=== PATIENT | male | born 1945 | race Caucasian/White ===

== ENCOUNTER 2024-03-20 11:45 | Emergency (ER) | payer MEDICARE, OTHER, SELFPAY ==
[2024-03-20] VITALS (7 sets, daily range): BP systolic 135–153; BP diastolic 59–67; PULSE 69–88; RESP 16–17; TEMP 36–36.6; O2SAT 98–99; BMI 23.1
--- NOTE | 2024-03-20 12:29 | RAD_ITS ---
STUDY: X-RAY CHEST REASON FOR EXAM: Male, 78 years old. One month history of shortness of breath. TECHNIQUE: PA and lateral views of the chest. COMPARISON: None. FINDINGS: There is hyperinflation of the lungs consistent with chronic obstructive lung disease (COPD). There is no demonstrated pleural abnormality. Normal size heart. Normal mediastinum and marjorie. Normal visualized pulmonary arteries. There is atherosclerotic calcification of the aortic arch with tortuosity. There are diffuse degenerative changes of the visualized thoracic spine. Normal visualized ribs, clavicles, and shoulders. There is no demonstrated abnormality of the visualized soft tissue structures of the upper abdomen. RAD/Chest PA and Lateral IMPRESSION: Hyperinflation. The lungs are clear. Electronically Signed: Elijah Wheeler MD at 13:09 EDT ,
--- NOTE | 2024-03-20 12:30 | ED.VIS.DYS ---
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 The dyspnea all started way before the vacation. He denies any asymmetry with regards to the swelling, which he reports is admittedly mild. He has had the dyspnea when he walks upstairs, it is better when he rests. He denies any exertional angina/chest discomfort. No history of DVT or PE or lung or heart problems although he has had pneumonia in the past. He denies any acute cough or fevers now. He denies any exertional syncope or near syncope. He does not have a PCP. This is the first time he is been evaluated for all this. [facility] Medical History Appendicitis PNA (pneumonia) Home Medications ?Medication ?Instructions ?Recorded ?Last Taken ?Type furosemide 20 mg tablet 20 mg PO DAILY #10 tabs 03/20/24 Unknown Rx Allergy/AdvReac Type Severity Reaction Status Date / Time No Known Allergies Allergy Verified 03/20/24 11:52 Family History no significant family his Social History Smoking Status: Never smoker ROS ROS ED Constitutional Constitutional ED: Denies chills or fever(s) Eyes Eyes: Denies change in vision or diplopia ENT ENT ED: Denies rhinorrhea or sore throat Cardiovascular Cardiovascular: Reports pedal edema; Denies chest pain, orthopnea, palpitations or paroxysmal nocturnal dyspnea Respiratory/Chest Respiratory/Chest: Reports dyspnea on exertion; Denies cough, orthopnea or paroxysmal nocturnal dyspnea Gastrointestinal Gastrointestinal: Denies abdominal pain, diarrhea, nausea or vomiting Genitourinary Genitourinary ED: Denies dysuria or hematuria Musculoskeletal Musculoskeletal: Denies back pain or neck pain Integumentary Denies abscess or rash Neurologic Neurologic: Denies headache(s), paresthesias or weakness Psychiatric Psychiatric: Denies suicidal thoughts EXAM Physical Exam Const Vital Signs: 03/20/24 11:47 03/20/24 12:27 09/16/24 12:32 Temperature 96.8 F L Temperature Source Temporal Pulse Rate 88 Respiratory Rate 16 Respiratory Effort Normal Non-Labored Respiratory Depth Normal Respiratory Pattern Normal Blood Pressure 153/64 H Blood Pressure Mean 93 Pulse Ox 99 99 Oxygen Delivery Method Room Air Room Air 03/20/24 12:46 03/20/24 13:08 03/20/24 14:00 Temperature 98 F Temperature Source Temporal Pulse Rate 69 79 69 Respiratory Rate 16 16 Respiratory Effort Respiratory Depth Respiratory Pattern Blood Pressure 135/59 H 137/64 H 141/67 H Blood Pressure Mean 84 88 91 Pulse Ox 98 98 99 Oxygen Delivery Method Room Air Room Air Room Air Positive well nourished and well developed General Appearance ED: well developed and NAD HEENT Reports moist mucous membranes normocephalic and atraumatic Eyes PERRL and EOMs intact bilaterally Neck full ROM, supple and no JVD Resp normal respiratory effort and clear to auscultation bilaterally Cardio regular rate, regular rhythm and no murmurs Rate: Negative for tachycardic GI non-tender and non-distended Auscultation: normoactive bowel sounds Palpation: soft Back/Spine no CVA tenderness General Back: other FROM Extremity normal to inspection General Extremety ED: Yes edema; Negative for pulses abnormal or tenderness General Extremity: edema bilateral lower extremity Details: trace; Negative for pulses abnormal Neuro oriented x3, CN's II-XII intact bilaterally and no sensory deficits noted Sensorium / Orientation: awake and alert Motor Exam: strength 5/5 throughout Skin no rashes or lesions noted and no wounds MDM MDM MDM Narrative Medical decision making narrative: Worked patient up for acute coronary syndrome, congestive heart failure, pleural effusions, hypoproteinemia/hypoalbuminemia, renal failure. Patient has not of that. He has a mild leukocytosis, he is not anemic, his albumin levels are little low but not enough to cause third spacing and he does not appear to have third spacing clinically in his lungs. Two-view chest x-ray my interpretation negative pulmonary edema, radiology in agreement it is also unremarkable. His EKG is normal, his troponin and BNP are both negative ruling out acute GI stated congestive heart failure. He has no tachycardia and a normal rhythm, and pulse ox 99% on room air so I do not think this is a pulmonary embolus nor does have any risk for that. When asked about his salt intake he states has been eating a lot of ponce. Certainly that could explain the bilateral lower extremity edema, but not necessarily dyspnea with exertion. Given that I would recommend following up with pulmonary, he may need pulmonary function tests, but I do not think he needs any emergent admission or other workup here. His vitals are stable blood pressure 153/64, on recheck 141/67, he is comfortable with the overall plan of prescribing him a couple days of Lasix and following. Lab Data Attestation: I reviewed the patient's lab results. Labs: Laboratory Results - last 24 hr 03/20/24 12:25 WBC 12.6 H RBC 4.05 L Hgb 12.3 L Hct 37.9 L MCV 93.6 MCH 30.4 MCHC 32.5 RDW Std Deviation 49.0 H RDW Coeff of Lisbeth 14.2 Plt Count 407 MPV 8.5 Immature Gran % (Auto) 0.300 Neut % (Auto) 78.5 H Lymph % (Auto) 14.0 L [place] % (Auto) 5.8 Eos % (Auto) 1.0 Baso % (Auto) 0.4 Absolute Neuts (auto) 9.9 H Absolute Lymphs (auto) 1.77 Nucleated RBC % 0 Sodium 135 L Potassium 4.2 Chloride 103 Carbon Dioxide 28.0 Anion Gap 4 L BUN 16 Creatinine 0.90 Estim Creat Clear Calc 73.02 Est GFR (MDRD) Af Amer 104 Est GFR (MDRD) Non-Af 86 BUN/Creatinine Ratio 17.8 Glucose 117 H Calcium 8.7 Total Bilirubin 0.50 AST 10 L ALT 17 Alkaline Phosphatase 75 Troponin I High Sens 6 B-Natriuretic Peptide 67.0 Total Protein 6.7 Albumin 2.9 L Globulin 3.8 Albumin/Globulin Ratio 0.8 L Radiography Diagnostic Testing: Clinical Impression(s) from Imaging Studies Chest X-Ray 03/20/24 12:29 IMPRESSION: Hyperinflation. The lungs are clear. Electronically Signed: Elijah Wheeler MD at 13:09 EDT , Rhythm Strip Rhythm Strip: Sinus Rhythm Rate: 85 Ectopy: None EKG Initial EKG: Attestation: I personally reviewed and interpreted this EKG as follows: Interpretation: Sinus Rhythm, No Acute Injury Pattern and LAFB Prior EKG tracings: not available for review Prior: No Prior Discharge Plan Triage Chief Complaint: Shortness of Breath ED Provider: Danyel Aguirre Dx/Rx/DC Orders Clinical Impression: DANIELLE (dyspnea on exertion), Bilateral edema of lower extremity Instructions: ED Dyspnea, ED Peripheral Edema, Bilateral Prescriptions: New furosemide 20 mg tablet 20 mg PO DAILY Qty: 10 0RF Primary Care Provider: Care Physician,No Primary Referrals: Ted Correa DO [Med Staff - Active Staff] - Jessica Correa MD [Non-Staff] - Activity Restrictions/Additional Instructions: Take the diuretic for the next 3 days, then as needed after that for swelling until you follow-up. Choose a pulmonary clinic above. Decrease your salt and ponce intake. Print Language: Kazakh Disposition Disposition: Home, Self Care
[2024-03-20 12:56] LABS: Absolute Lymphocyte Count 1.77 X10^3/uL (0.83-4.51); Absolute Neutrophil Count 9.9 X10^3/uL (2.0-7.7); Basophil# 0.05 X10^3/uL; Basophil% 0.4 % (0-1); Eosinophil# 0.13 X10^3/uL; Hematocrit 37.9 % (40-54); Hemoglobin 12.3 g/dL (13.0-16.5); Lymphocyte # 1.77 X10^3/ul (0.83-4.51); Mean Corp Hgb Conc 32.5 g/dL (32-36); Mean Corpuscular Hgb 30.4 pg (27.0-32.0); Mean Corpuscular Volume 93.6 fL (80-94); Mean Platelet Vol. 8.5 fl (6.2-12.0); Monocyte# 0.73 X10^3/uL; Monocyte% 5.8 % (0-10); NRBC Flagged by Analyzer 0 % (0-5); Neutrophil # 9.91 X10^3/uL (2.7-7.7); Neutrophil % 78.5 % (47-70); Platelet Count 407 K/mm3 (150-450); RBC Distribution Width CV 14.2 % (11.6-14.6); Red Blood Count 4.05 M/mm3 (4.6-6.2); White Blood Count 12.6 K/mm3 (4.4-11.0)
[2024-03-20 12:58] LABS: ALB/GLOB Ratio 0.8 RATIO (0.9-2.4); AST(SGOT) 10 U/L (15-37); Alanine Aminotransfer ALT/SGPT 17 U/L (16-61); Albumin, Serum 2.9 g/dL (3.2-5.0); Alkaline Phosphatase 75 U/L (45-117); Anion Gap 4 (5-15); BUN 16 mg/dL (7-18); BUN/Creat Ratio 17.8 RATIO (10-20); Calcium,Total 8.7 mg/dL (8.5-10.1); Chloride 103 mmol/L (98-107); EST Glomerular Filtration Rate 86 mL/min (>60); Est Glom Filt Rate - Afr Amer 104 mL/min (>60); Estimated Creatinine Clearance 73.02 ml/min; Globulin 3.8 g/dL (2.2-4.2); Glucose 117 mg/dL (74-106); Potassium 4.2 mmol/L (3.5-5.1); Protein, Total 6.7 g/dL (6.4-8.2); Sodium Level 135 mmol/L (136-145); Troponin-I HS 6 pg/mL (3.0-78.0)
--- NOTE | 2024-03-20 13:14 | ED.RN ---
THIS NURSE CONFIRMED COMPLETION OF SEPSIS SCREEN WITH DR. CHOE
== END 2024-03-20 14:48 | disposition home or self-care (01) ==
PROVIDERS: Emergency Provider Emergency Medicine; Visit Provider Emergency Medicine
DX: R06.09 Other forms of dyspnea (principal); R60.0 Localized edema; Z87.01 Personal history of pneumonia (recurrent)
CPT/HCPCS: 71046; 80053; 83880; 84484; 85025; 93005; 99284; A4216